=== PATIENT | male | born 2000 | race Caucasian/White ===

== ENCOUNTER → 2021-12-06 | Outpatient (CLI) | payer MEDICAID | LOC: COL.RAD 12:13 | DX: M25.512 Pain in left shoulder (principal) ==

== ENCOUNTER 2021-12-16 17:10 | Emergency (ER) | payer MEDICAID ==
[~2021-12-16] VITALS: Ht 167.6 cm; Wt 90.9 kg
[2021-12-16 17:15] VITALS: TEMP 97.8
[2021-12-16 18:18] VITALS: BP 124/78; PULSE 76
== END 2021-12-16 18:19 | disposition home or self-care (01) ==
LOC: COL.ER 17:10
DX: S43.402A Unspecified sprain of left shoulder joint, initial encounter (principal); S50.02XA Contusion of left elbow, initial encounter; W01.0XXA Fall on same level from slipping, tripping and stumbling without subsequent striking against object, initial encounter

== ENCOUNTER 2022-02-27 16:30 | Outpatient (RCR) | payer MEDICAID | END 2022-03-13 | disposition still patient (30) | LOC: WSPT | DX: M25.512 Pain in left shoulder (principal) ==

== ENCOUNTER 2022-04-03 16:45 | Outpatient (RCR) | payer MEDICAID | END 2022-04-04 15:12 | disposition home or self-care (01) | LOC: WSPT 16:45 | DX: M25.512 Pain in left shoulder (principal) ==

== ENCOUNTER → 2022-07-03 | Outpatient (CLI) | payer MEDICAID | LOC: COL.RAD 16:21 | DX: M25.552 Pain in left hip (principal) ==

== ENCOUNTER 2022-07-25 09:20 | Outpatient (RCR) | payer MEDICAID | END 2022-08-13 | disposition home or self-care (01) | LOC: MKS.ESL.PT | DX: M25.552 Pain in left hip (principal) ==

== ENCOUNTER 2022-11-06 15:08 | Outpatient (RCR) | payer MEDICAID | END 2022-11-06 15:09 | LOC: MKS.ESL.PT 15:08 | DX: M25.552 Pain in left hip (principal) ==